=== PATIENT | female | born 1965 | race Caucasian/White ===

== ENCOUNTER 2023-08-18 15:55 | Inpatient (IN) | payer OTHER, SELFPAY ==
[2023-08-18] VITALS (11 sets, daily range): BP systolic 124–190; BP diastolic 51–139; BMI 48.4
[2023-08-18] MEDS: DUONEB 3 ML INH (13:05)
[2023-08-18] MEDS: SOLU-MEDROL PF 125 MG IV (13:06)
--- NOTE | 2023-08-18 13:09 | ED.GENMED ---
History of Present Illness
<Miguel Angel Adam PA-C - Last Filed: 08/18/23 15:31>
General
Chief Complaint: Breathing Problem
Source: patient
Time Seen by Provider: 08/18/23 13:03
Travel History
Have you had any contact with someone who has COVID-19?: No
Do you have any symptoms of coronavirus? Fever > 100 degrees, chills, cough, shortness of breath, sore throat, loss of taste or smell, muscle aches, or headache?: No
History of Present Illness
History of Present Illness:
58-year-old female with past medical history of asthma presenting the emergency department for evaluation of 24 to 36 hours of cough, wheezing, shortness of breath despite using her inhaler and nebulizer machine at home last night, used her inhaler
once this morning. On arrival to the emergency department patient was found to be tachypneic, tachycardic and with accessory muscle use so was started on a DuoNeb. Upon my arrival into the room patient's DuoNeb had just completed and she does
report improvement of the symptoms however still with continued wheezing. Patient denies any fevers, chills, rigors. States her usual trigger for her is mold but she believes that the change in the weather as well as pollen is likely what caused
her symptoms today. She notes that she was admitted to the hospital for asthma exacerbation about 8 years ago but has never been intubated for asthma exacerbation.
Past History
<Miguel Angel Adam PA-C - Last Filed: 08/18/23 15:31>
Past History
ED Past Medical History: Asthma
ED Past Surgical History: , Orthopedic and Tonsilectomy
Social History
Tobacco: Non-smoker
Alcohol: Occasional
Drug: None
Personal: Single
Living: with family
Employment: Employed
Family History
Family History: Asthma
Review of Systems
<Miguel Angel Adam PA-C - Last Filed: 08/18/23 15:31>
Review of Systems
All Other Systems: ROS reviewed and negative except as documented in HPI and ROS
Phy Exam
<Miguel Angel Adam PA-C - Last Filed: 08/18/23 15:31>
Physical Exam
Physical Exam:
GENERAL: Alert , sitting forward in hospital bed, speaking full sentences
EYE: conjunctiva clear
NECK: Supple
ENT: o/p clr, mmm.
CARDIAC: Regular rate and rhythm
LUNGS: Diffuse expiratory wheezing, no accessory muscle use but is tachypneic, oxygen saturation 92% room air, speaking full sentences, no air hunger
NEUROLOGICAL: Alert and oriented
SKIN: Warm and dry, skin intact.
MUSCULOSKELETAL: well perfused.
PSYCH: Normal and appropriate interaction.
Scores
<Miguel Angel Adam PA-C - Last Filed: 08/18/23 15:31>
Heart Failure Risk
Heart Failure Risk Score: Not Applicable
Heart Score for Chest Pain Patients
STEMI patient?: Not applicable
Withdrawal Assessment of Alcohol
Withdrawal Assessment Completed?: Not applicable
Course
<ANAI Lindsay Last Filed: 08/18/23 15:31>
Orders/Labs/Results
Orders:
Orders
08/18/23 13:05
Ipratropium/Albuterol Sulfate [Duoneb] 3 ml INH R NOW ONE
MethylPREDNISolone PF [Solu-Medrol Pf] 125 mg IV NOW STA
08/18/23 13:07
Albuterol Sulfate [Ventolin Nebules] 10 mg INH R NOW STA
08/18/23 13:09
Complete Blood Count/With Diff Urgent
08/18/23 13:14
CR Chest Portable - 1 View Urgent
Comment:
Reason For Exam: SOB
Reason Study Needs to be Portable: Patient Unstable
08/18/23 14:38
Magnesium Sulfate 2 Gram/50 ml [Magnesium Sulfate] 2 gram in 50 ml IV NOW
08/18/23 14:40
Albuterol Sulfate [Ventolin Nebules] 10 mg INH R NOW STA
08/18/23 14:47
BMP [Basic Metabolic Panel] Urgent
08/18/23 15:27
Potassium Chloride [KCl] 20 meq PO NOW STA
Abnormal Lab Results
08/18/23 08/18/23
13:09 14:47
Absolute Neuts (auto) 7.2 H 10^3/uL
(1.4-6.5)
Absolute Lymphs (auto) 1.1 L 10^3/uL
(1.2-3.4)
Absolute Monos (auto) 0.7 H 10^3/uL
(0.1-0.6)
Neutrophils % 78.1 H %
(42.2-75.2)
Lymphocytes % 12.0 L %
(20.5-51.1)
Potassium 3.4 L mmol/L
(3.5-5.1)
Creatinine 0.5 L mg/dL
(0.6-1.0)
Glucose 163 H mg/dl
(70-99)
08/18/23 13:09
08/18/23 14:47
Vital Signs
Initial and Last Documented VS:
Initial Vital Signs
Temp Pulse Resp BP Pulse Ox
98.5 F 141 20 190/115 89
08/18/23 12:40 08/18/23 12:40 08/18/23 12:40 08/18/23 12:40 08/18/23 12:40
Last Documented Vital Signs
Temp Pulse Resp BP Pulse Ox
98.5 F 133 28 155/51 100
08/18/23 12:40 08/18/23 15:13 08/18/23 15:13 08/18/23 15:11 08/18/23 15:11
Lurer consulted with Physician
Lurer consulted with physician?: Yes
Name of Physician Consulted: Facundo
<Gianfranco Loredo MD - Last Filed: 08/18/23 15:06>
Orders/Labs/Results
Orders:
Orders
08/18/23 13:05
Ipratropium/Albuterol Sulfate [Duoneb] 3 ml INH R NOW ONE
MethylPREDNISolone PF [Solu-Medrol Pf] 125 mg IV NOW STA
08/18/23 13:07
Albuterol Sulfate [Ventolin Nebules] 10 mg INH R NOW STA
08/18/23 13:09
Complete Blood Count/With Diff Urgent
08/18/23 13:14
CR Chest Portable - 1 View Urgent
Comment:
Reason For Exam: SOB
Reason Study Needs to be Portable: Patient Unstable
08/18/23 14:38
Magnesium Sulfate 2 Gram/50 ml [Magnesium Sulfate] 2 gram in 50 ml IV NOW
08/18/23 14:40
Albuterol Sulfate [Ventolin Nebules] 10 mg INH R NOW STA
08/18/23 14:47
BMP [Basic Metabolic Panel] Urgent
08/18/23 15:27
Potassium Chloride [KCl] 20 meq PO NOW STA
Abnormal Lab Results
08/18/23 08/18/23
13:09 14:47
Absolute Neuts (auto) 7.2 H 10^3/uL
(1.4-6.5)
Absolute Lymphs (auto) 1.1 L 10^3/uL
(1.2-3.4)
Absolute Monos (auto) 0.7 H 10^3/uL
(0.1-0.6)
Neutrophils % 78.1 H %
(42.2-75.2)
Lymphocytes % 12.0 L %
(20.5-51.1)
Potassium 3.4 L mmol/L
(3.5-5.1)
Creatinine 0.5 L mg/dL
(0.6-1.0)
Glucose 163 H mg/dl
(70-99)
08/18/23 13:09
08/18/23 14:47
Vital Signs
Initial and Last Documented VS:
Initial Vital Signs
Temp Pulse Resp BP Pulse Ox
98.5 F 141 20 190/115 89
08/18/23 12:40 08/18/23 12:40 08/18/23 12:40 08/18/23 12:40 08/18/23 12:40
Last Documented Vital Signs
Temp Pulse Resp BP Pulse Ox
98.5 F 133 28 155/51 100
08/18/23 12:40 08/18/23 15:13 08/18/23 15:13 08/18/23 15:11 08/18/23 15:11
<Miguel Angel Adam PA-C - Last Filed: 08/18/23 15:31>
MDM/Problems Addressed
Differential Diagnosis Includes:
Asthma/COPD exacerbation, pneumonia, PE considered although thought to be much less likely given the visit exam findings of diffuse expiratory wheezing
MDM/Problems Addressed:
58-year-old female presenting emergency department for evaluation of shortness of breath and wheezing ongoing since yesterday, attempted her home nebulizer and inhaler with minimal relief. Found to be hypoxic tachycardic on arrival. Exam findings
would be most suggestive of asthma exacerbation. She had already received a DuoNeb and was completing this upon my arrival into the room and patient had good response with her oxygen coming back up into the low 90s. She still has diffuse
expiratory wheezing. An hour-long albuterol treatment and 125mg of Solu-Medrol ordered. Will continue to observe and reassess.
Chronic conditions affecting care: Asthma
Acute Exacerbation and/or Progression of Chronic Illness: Asthma
<Miguel Angel Adam PA-C - Last Filed: 08/18/23 15:31>
*Radiology
Radiology exam reviewed: preliminary read by ED provider (No consolidations or infiltrates)
*Pulse Oximetry
Patient hypoxic: yes
*Pick And Shovel [employer] Interpretation
Rate: tachycardiac
Rhythm: sinus
*Critical Care Note
Total Time (30-74mins, 75-104mins- exclusive of procedures): Not Applicable
Data Reviewed
Review of Other/Old Records Reveals: Labs and Records
<Miguel Angel Adam PA-C - Last Filed: 08/18/23 15:31>
Patient Management
Discussion with other providers: Hospitalist
Escalation/DeEscalation of care consider admission/obs:
On reevaluation following the first hour-long nebulizer treatment patient's oxygen saturation now back to 89%. We replaced the oxygen with 2 L via nasal cannula. Patient continues with expiratory wheezing and tachypnea. We ordered magnesium
infusion and an additional hour-long neb. Patient accepted to the hospitalist service for continued evaluation and treatment of suspected asthma exacerbation
ED Attending Note
<Miguel Angel Adam PA-C - Last Filed: 08/18/23 15:31>
-
Portions of this chart may have been created with voice recognition software.� Occasional wrong word or��sound alike� substitutions may have occurred due to the inherent limitations of voice recognition software.
<Gianfranco Loredo MD - Last Filed: 08/18/23 15:06>
ED Attending Note
Patient seen and examined by attending physician: Yes
I performed the substantive portion of visit, reviewed & personally made and approve the management plan that is documented in note by myself or MIGUE.: Yes
ED Attending Note:
4095.... Patient was already seen after initial arrival. Presents with cough shortness of breath. History of asthma. Has been hospitalized before. No previous intubations.
On exam patient is nontoxic but mildly tachypneic. Diffuse expiratory wheezing. Mildly tachycardic. Warm and dry perfusing well. Patient was rechecked shortly ago after her 1 hour nebulizer treatment and steroids. Chest x-ray reviewed which is
unremarkable. However she remains with diffuse expiratory wheezing. Repeat hour-long nebs. Will try some magnesium. Clearly warrants admission.
1505.... Patient currently on a hour-long nebulizer. Fully awake and alert. Diffuse wheezing. Pulse ox 97%. Discussed with hospital team
Discharge Plan
Departure
Patient Disposition: Admit
Date of Disposition: 08/18/23
Time of Disposition: 14:41
Presentation/result/management discussed w/ accepting MD/DO: Hospitalist
Discharge Problem:
Asthma, Hypoxia
Prescriptions:
No Action
montelukast 10 MG tablet
10 mg PO QPM
fluticasone propionate 1 SPRAY spray,suspension
2 spray intranasal BID
Rx Instructions:
1 spray into each nostril
budesonide-formoterol [Symbicort] 1 PUFF HFA aerosol inhaler
2 puff inhalation R BID
albuterol sulfate [Ventolin HFA] 90 MCG/PUFF HFA aerosol inhaler
2 puff inhalation Q4HPRN PRN (Reason: sob)
multivitamin Tablet
1 tab PO DAILY
melatonin 5 mg Tablet
5 mg PO HS PRN (Reason: sleep)
albuterol sulfate 2.5 MG/3 ML solution for nebulization
2.5 mg inhalation R QID
famotidine [Pepcid AC] 10 mg Tablet
10 mg PO HS
Referrals:
Rere Tarango MD [Family Provider] -
Interventions
Interventions:
*Risk Screen - Suicide Last Done: 08/18/23 13:28
*General Assessment Last Done: 08/18/23 13:28
*Neglect/Abuse Screening Last Done: 08/18/23 13:28
ED- Fall Risk Assessment Last Done: 08/18/23 13:28
*ED COVID-19 Vaccine History Last Done: 08/18/23 12:40
ED- Cardiac Assessment Last Done: 08/18/23 13:28
ED- Pulmonary Assessment Last Done: 08/18/23 13:28
Discharge Date and Time
Print Language: KENYAN
[2023-08-18] MEDS: VENTOLIN NEBULES 10 MG INH ×2 (13:16→14:49)
[2023-08-18 13:22] LABS: % Basophils 0.7 % (0-2); % Eosinophils 1.7 % (0-6); % Immature Granulocytes 0.2 % (0-0.5); % Monocytes 7.3 % (1.7-9.3); % Neutrophils 78.1 % (42.2-75.2); Absolute Basophils 0.1 10^3/uL (0-0.2); Absolute Eosinophils 0.2 10^3/uL (0-0.7); Absolute Lymphocytes 1.1 10^3/uL (1.2-3.4); Absolute Monocytes 0.7 10^3/uL (0.1-0.6); Absolute Neutrophils 7.2 10^3/uL (1.4-6.5); Hematocrit 41.9 % (37.0-47.0); Hemoglobin 14.5 g/dL (12.0-16.0); Mean Corp Hgb Conc. 34.6 g/dL (33.0-37.0); Mean Corpuscular Volume 86.7 fL (81.0-99.0); Mean Platelet Volume 8.9 fL (7.4-10.4); Nucleated Red Blood Cells % 0 %; Platelet Count 335 10^3/uL (130-400); Red Blood Cell Count 4.83 10^6/uL (4.20-5.40); White Blood Cell Count 9.2 10^3/uL (4.8-10.8)
[2023-08-18] MEDS: MAGNESIUM SULFATE 50 IV (14:41)
--- NOTE | 2023-08-18 14:59 | HPS.HSE ---
Family Physician
-
Family Physician: Rere Tarango
Chief Complaint
-
Cough and Shortness of Breath
History of Present Illness
Patient is a 58 y/o female past medical history of asthma who presents with increased shortness of breath. Patient reports she started with increased shortness of breath and cough yesterday. She notes cough was productive of clear mucus yesterday
but today it was more yellow. She reports using her home nebulizer last night, and inhaler this morning without improvement in her breathing. She reports being hospitalized for her asthma several times, most recently about 5 years ago, but denies
requiring intubation in the past. She has seen pulmonary in the past, but not for the past two years. She denies fevers, sweats or chills.
Medical History
Past Medical History
Past Medical History: Reports Other
Additional Past Medical History:
Asthma
Obstructive Sleep Apnea
Class III Obesity
Past Surgical History: Reports Other
Additional Past Surgical History:
Back Surgery
Left Knee Surgery
Social History
Tobacco: Non-smoker
Alcohol: Occasional
Family History
Family History: Not pertinent
Allergies / Home Medications
Allergies reflects when Allergies were last updated in [facility].
Home Medications with original date entered in [facility]
Allergy/Medication List:
Allergies
Allergy/AdvReac Type Severity Reaction Status Date / Time
ampicillin Allergy Rash Verified 08/18/23 12:42
codeine Allergy Anaphylaxis Verified 08/18/23 12:42
ibuprofen Allergy facial Verified 08/18/23 12:42
droop
Home Medications
albuterol sulfate 90 mcg/actuation aerosol inhaler (Ventolin HFA) 2 puff inhalation Q4HPRN PRN sob 11/15/15
budesonide-formoterol HFA 160 mcg-4.5 mcg/actuation aerosol inhaler (Symbicort) 2 puff inhalation R BID Lung/Breathing Issues 11/15/15
fluticasone propionate 50 mcg/actuation nasal spray,suspension 2 spray intranasal BID Allergies 11/15/15
montelukast 10 mg tablet 10 mg PO QPM Lung/Breathing Issues 11/15/15
albuterol sulfate 2.5 mg/3 mL (0.083 %) solution for nebulization 2.5 mg inhalation R QID Lung/Breathing Issues 08/18/23
famotidine 10 mg tablet (Pepcid AC) 10 mg PO HS GERD 08/18/23
melatonin 5 mg tablet 5 mg PO HS PRN sleep 08/18/23
multivitamin 1 tab PO DAILY Supplement 08/18/23
Review of Systems
-
A 12 point ROS was completed and negative except as noted: Yes
Constitutional: Denies Fever or Chills
Respiratory: Reports Cough and Trouble Breathing
Cardiac: Denies Chest Pain
Physical Exam
Vital Signs
Vital Signs
Temp Pulse Resp BP Pulse Ox
98.5 F 132 28 158/85 93
08/18/23 12:40 08/18/23 14:24 08/18/23 14:24 08/18/23 14:00 08/18/23 14:24
Physical Exam
General: Comfortable and Conversant
HEENT: Anicteric, Moist mucous membranes and Oxygen (Nasal Cannula)
Respiratory: Wheezes (Diffuse Expiratory) and Non Labored Respirations
GI: Soft and Non Tender
Rectal: Deferred by Provider
Musculoskeletal: No Clubbing, No Cyanosis and No Edema
Skin: Warm and Dry
Neuro: Awake, Alert, Oriented and Nonfocal/grossly intact
Psych: Calm
Laboratory Results
-
08/18/23 13:09
Laboratory Results
Total Bilirubin Cancelled 08/18/23 13:23
AST Cancelled 08/18/23 13:23
ALT Cancelled 08/18/23 13:23
Alkaline Phosphatase Cancelled 08/18/23 13:23
Data Reviewed
-
Diagnostic Radiology: Report Reviewed by me
Lab Data: Labs Reviewed by me
Impression/Plan
-
Acute Hypoxic Respiratory Insufficiency secondary to Acute Asthma Exacerbation
-Consult Pulmonary
-Continue supplemental oxygen
-Continue Decadron
-Continue Albuterol
-Transition Symbicort to Pulmicort neb during hospitalization
-Add Mucinex
Obstructive Sleep Apnea
-Continue CPAP
Class III Obesity
-Affects all aspects of care
-Encourage weight loss
GERD
-Continue Pepcid
DVT Proph: Lovenox
Code Status: Full Code
[2023-08-18 15:22] LABS: Blood Urea Nitrogen 12 mg/dl (7-17); Calcium 8.8 mg/dl (8.4-10.2); Carbon Dioxide 22 mmol/L (22-30); Chloride 105 mmol/L (98-107); Glucose 163 mg/dl (70-99); Potassium 3.4 mmol/L (3.5-5.1); Sodium 135 mmol/L (135-145); eGFR > 60.00
[2023-08-18] MEDS: KCL 20 MEQ PO (15:32)
--- NOTE | 2023-08-18 16:10 | W.PN.UPDATE ---
Update Note
Progress Note Update
I saw and examined the patient.
The CLIENT MANAGER [employer] or PA's note was reviewed and I agree with the note.
Comment: 58-year-old female who presents with a chief complaint of shortness of breath.
158/85, 132, 20, 98.5 �F, 93% 3L NC O2
Appears mildly short of breath, normocephalic atraumatic, awake alert and oriented
Tachycardic, regular rhythm, normal S1-S2
Decreased air exchange and wheezing bilaterally
Cranial nerves II to XII are intact
CXR: Elevation of right hemidiaphragm again seen. Markedly low lung volumes with mild right basilar opacity most likely representing subsegmental atelectasis. No pneumothorax or pleural effusion
WBC 9.2
Cr 0.5
Acute hypoxemic respiratory insufficiency due to acute asthma exacerbation:
-Decadron 4mg IV Q8H
-albuterol standing and PRN
-Support with supplemental oxygen
-Pulmonary consult
Morbid obesity due to excess calories:
-Affects all aspects of care. In this instance acute asthma exacerbation the patient's morbid obesity is causing restrictive pulmonary physiology.
-Encourage weight loss
--- NOTE | 2023-08-18 18:30 | CON.PUL ---
Consultation
Consultation Request
Date/Time Consultation Requested: 08/17
Date/Time Consultation Performed: 08/17
Reason for Consultation: Shortness of breath
Medical History
-
History of Present Illness:
58-year-old female with history of asthma, sleep apnea. She was in her usual state of health until 2 days ago developed increased shortness of breath, chest congestion, cough. She states her asthma has been stable for at least 5 years, last course
of steroids around 2019. She is maintained on Symbicort and albuterol which she rarely uses. She thinks it may have to do with allergies. She denies any recent sick contacts, however her mother recently has developed an upper respiratory
infection. Upon arrival to [facility], afebrile, pulse 141, breathing at 20, blood pressure 190/115, 89%. Patient was noted to be diffusely wheezing, given nebulized therapy, IV steroids, IV magnesium. We are asked to help from pulmonary
standpoint
Of note, patient has gained 30 pounds over the past few years. She also has a new CPAP machine over the past 3 years since the recall, she feels that the current machine is not working as effectively
.
PMH: Obstructive sleep apnea, GERD, asthma, morbid obesity, hypertension, hyperlipidemia. History of laminectomy, , tonsillectomy, sinus surgery
Past Medical History
Past Medical History: None (See above)
Past Surgical History: None (See above)
Social History
Tobacco: Non-smoker
Alcohol: None
Drug: None
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
Family History
Family History: Other (Father with emphysema, family history of esophageal and colon cancer. Son is healthy)
Allergies / Home Medications
Allergies
Allergy/AdvReac Type Severity Reaction Status Date / Time
ampicillin Allergy Rash Verified 08/18/23 12:42
codeine Allergy Anaphylaxis Verified 08/18/23 12:42
ibuprofen Allergy facial Verified 08/18/23 12:42
droop
Home Medications
�Medication �Instructions �Recorded �Confirmed �Last Taken �Type
albuterol sulfate 90 mcg/actuation 2 puff inhalation Q4HPRN PRN sob 11/15/15 08/18/23 11/15/15 History
aerosol inhaler (Ventolin HFA)
budesonide-formoterol HFA 160 2 puff inhalation R BID 11/15/15 08/18/23 08/18/23 History
mcg-4.5 mcg/actuation aerosol Lung/Breathing Issues
inhaler (Symbicort)
fluticasone propionate 50 2 spray intranasal BID Allergies 11/15/15 08/18/23 08/18/23 History
mcg/actuation nasal
spray,suspension
montelukast 10 mg tablet 10 mg PO QPM Lung/Breathing Issues 11/15/15 08/18/23 08/17/23 History
albuterol sulfate 2.5 mg/3 mL 2.5 mg inhalation R QID 08/18/23 08/18/23 Unknown History
(0.083 %) solution for nebulization Lung/Breathing Issues
famotidine 10 mg tablet (Pepcid AC) 10 mg PO HS GERD 08/18/23 08/18/23 08/17/23 History
melatonin 5 mg tablet 5 mg PO HS PRN sleep 08/18/23 08/18/23 Unknown History
multivitamin 1 tab PO DAILY Supplement 08/18/23 08/18/23 08/18/23 History
Review of Systems
-
All other systems: Negative unless noted
Vitals / Labs / Diagnostic Testing
Vital Signs
Temp Pulse Resp BP Pulse Ox
98.5 F 133 26 141/82 91
08/18/23 12:40 08/18/23 15:13 08/18/23 17:36 08/18/23 17:00 08/18/23 17:30
Lab Data
08/18/23 13:09
08/18/23 14:47
Diagnostic Testing:
Physical Exam
-
HEENT: Normocephalic, Anicteric and Other (Large neck)
Cardiovascular: S1/S2, Regular Rhythm (Tachycardic), Murmur (n), Rub (n) and Peripheral Edema (tr)
Respiratory: Wheeze (Scattered expiratory and inspiratory squeaks), Rales (n), Rhonchi (n), Non-Labored Respirations and Accessory Resp Muscle Use (Mild with conversation)
GI: Soft, Non Distended (Morbidly obese) and Non Tender
Neurology: Awake, Alert, Oriented and No Motor Deficits
Skin: Good Color and Other (No clubbing, no cyanosis)
General: Comfortable
Assessment
-
58-year-old female with longstanding history of asthma, controlled, sleep apnea on CPAP therapy, morbid obesity with recent 30 pound weight gain, presents with 48 hours of increased symptoms. Noted to be hypoxic, hypertensive, tachycardic with
diffuse wheezing. Received IV steroids, IV magnesium and hour-long nebulizer. We are asked to help from pulmonary standpoint for asthma exacerbation
Acute asthma exacerbation
Tachycardia
Hypertension
Hypoxia, acute
88% on room air
Conditions present prior to admission
History of asthma on Symbicort therapy
Chronic rhinitis
GERD, hiatal hernia
History of sinus surgery
Sleep apnea on CPAP therapy
Family history of emphysema (father)
Morbid obesity
30 pound weight gain
History of COVID 2021
Plan/recommendations
At this time, patient appears to be comfortable mild use of accessory muscles with conversation
Diffuse wheezing and inspiratory squeaks noted, decreased breath sounds
Admitting vitals concerning with hypertension, tachycardia, tachypnea, hypoxia
These all seem to be improved at this time
Patient apparently is compliant with Symbicort therapy. Trigger may be weather changes, allergies
Moving forward
Continue with IV steroids, budesonide, albuterol, Singulair
Patient has not followed up with pulmonary since 2019
She states her asthma has been controlled since 2018
She feels her cough has been present since 2021 following COVID
Discussed importance of weight loss measures
Head of bed elevated, GERD controlled
She will require follow-up in the pulmonary clinic especially given her issues with CPAP
This will be facilitated at time of discharge
Follow blood sugars
DVT prophylaxis: Lovenox
GI prophylaxis: Continue Pepcid
Will follow
[2023-08-18] MEDS: LOVENOX 40 MG SC (19:18)
[2023-08-18] MEDS: VENTOLIN NEBULES 2.5 MG INH (20:24)
[2023-08-18] MEDS: PULMICORT 0.5 MG INH (20:24)
[2023-08-18] MEDS: MUCINEX 600 MG PO (20:53)
[2023-08-18] MEDS: TYLENOL 650 MG PO (20:53)
[2023-08-18] MEDS: SINGULAIR 10 MG PO (20:54)
[2023-08-18] MEDS: PEPCID 10 MG PO (20:57)
[2023-08-19] VITALS (8 sets, daily range): BP systolic 128–150; BP diastolic 67–90; PULSE 74–94
[2023-08-19] MEDS: MELATONIN 5 MG PO ×2 (00:07→22:28)
[2023-08-19] MEDS: DECADRON 4 MG IV ×4 (00:08→23:00)
[2023-08-19] MEDS: VENTOLIN NEBULES 2.5 MG INH ×5 (00:10→19:54)
[2023-08-19] MEDS: TYLENOL 650 MG PO ×2 (02:36→08:58)
[2023-08-19 05:41] LABS: Hemoglobin 13.2 g/dL (12.0-16.0); Mean Corpuscular Hgb 29.5 pg (27.0-31.0); Mean Corpuscular Volume 89.5 fL (81.0-99.0); Platelet Count 249 10^3/uL (130-400); Red Blood Cell Count 4.47 10^6/uL (4.20-5.40); Red Cell Dist. Width 13.2 % (11.5-14.5); White Blood Cell Count 11.2 10^3/uL (4.8-10.8)
[2023-08-19 06:12] LABS: Blood Urea Nitrogen 12 mg/dl (7-17); Calcium 9.2 mg/dl (8.4-10.2); Carbon Dioxide 25 mmol/L (22-30); Chloride 105 mmol/L (98-107); Estimated Creatinine Clearance > 125 ml/min; Glucose 130 mg/dl (70-99); Magnesium 2.4 mg/dl (1.6-2.3); Sodium 137 mmol/L (135-145); eGFR > 60.00
[2023-08-19] MEDS: PULMICORT 0.5 MG INH ×2 (07:11→19:54)
[2023-08-19] MEDS: THERAGRAN 1 TABLET PO (08:58)
[2023-08-19] MEDS: MUCINEX 600 MG PO ×2 (08:58→20:33)
--- NOTE | 2023-08-19 09:04 | W.PN.HOSP.TC ---
Today's Communication/Plan
-
see bold
Assessment / Plan
Assessment / Plan
Gen: NAD, AAOx3.
Eyes: EOMI, PERRLA, no scleral icterus.
Neck: supple.
CV: tachy, reg rhythm, +S1/S2, no m/r/g.
Resp: mild-mod wheezing, dec AE
Abd: +BS, soft, NT, ND
Skin: No rashes.
Neuro: CN 2-12 intact, non-focal.
Psych: Normal mood and affect.
CXR: Elevation of right hemidiaphragm again seen. Markedly low lung volumes with mild right basilar opacity most likely representing subsegmental atelectasis. No pneumothorax or pleural effusion
Acute hypoxemic respiratory insufficiency due to acute asthma exacerbation:
-Decadron 4mg IV Q8H
-cont pulmicort, albuterol standing and PRN, singulair
-Support with supplemental oxygen (currently on 4L NC O2)
-Pulmonary following
Morbid obesity due to excess calories:
-Affects all aspects of care. In this instance acute asthma exacerbation the patient's morbid obesity is causing restrictive pulmonary physiology.
-Encourage weight loss
WENDI: Cont CPAP HS
GERD: currently on Pepcid
FULL/Lovenox
Anticipated Discharge: 24 - 48 hours
Subjective/Interval History
-
Date of Service: August 19, 2023
SOB improving.
Objective Data
-
Labs:
Laboratory Results
08/19/23
05:30
WBC 11.2 H
Hgb 13.2
Hct 40.0
Plt Count 249 D
Sodium 137
Potassium 5.0 D
Chloride 105
Carbon Dioxide 25
BUN 12
Creatinine 0.5 L
Glucose 130 H
Calcium 9.2
Vital Signs:
Vital Signs
Temp Pulse Resp BP Pulse Ox
97.4 F 92 18 128/72 96
08/19/23 07:00 08/19/23 07:15 08/19/23 07:15 08/19/23 07:00 08/19/23 07:15
I&O
08/18/23 08/19/23 08/20/23
06:59 06:59 06:59
Intake Total 600 / 600
Balance 600 / 600
[2023-08-19] MEDS: ZOFRAN 4 MG IV (09:31)
--- NOTE | 2023-08-19 14:16 | CM ---
Met with pt at bedside
Pt lives with her mother and son in a modular home at listed address
Working FT, drives
DM - CPAP, nebulizer
SNF/HH - no hx
Has ride at d/c
PCP - Dr India Tarango
Pharm - [facility]
CM consulted - re: Advance Directive
Pt given Advance Directive Packet
CM will continue to follow for d/c needs
Plan - anticipate home no needs
--- NOTE | 2023-08-19 15:51 | W.PN.PUL3 ---
Today's Communication / Plan
-
No change in steroids
continue nocturnal CPAP
Continue nebulized therapy
Wean oxygen
Assessment
-
58-year-old female with longstanding history of asthma, controlled, sleep apnea on CPAP therapy, morbid obesity with recent 30 pound weight gain, presents with 48 hours of increased symptoms. Noted to be hypoxic, hypertensive, tachycardic with
diffuse wheezing. Received IV steroids, IV magnesium and hour-long nebulizer. We are asked to help from pulmonary standpoint for asthma exacerbation
Acute asthma exacerbation
Tachycardia
Hypertension
Hypoxia, acute
88% on room air
Conditions present prior to admission
History of asthma on Symbicort therapy
Chronic rhinitis
GERD, hiatal hernia
History of sinus surgery
Sleep apnea on CPAP therapy
Family history of emphysema (father)
Morbid obesity
30 pound weight gain
History of COVID 2021
Plan/recommendations
At this time, patient appears to be comfortable, less use of accessory muscles with conversation
Diffuse wheezing and inspiratory squeaks noted, decreased breath sounds, overall improved
Admitting vitals concerning with hypertension, tachycardia, tachypnea, hypoxia
These all seem to be improved at this time
Patient apparently is compliant with Symbicort therapy. Trigger may be weather changes, allergies
Moving forward
Continue with IV steroids, budesonide, albuterol, Singulair. No change in steroids for now
Patient has not followed up with pulmonary since 2019
She states her asthma has been controlled since 2018
She feels her cough has been present since 2021 following COVID
Discussed importance of weight loss measures
Head of bed elevated, GERD controlled
She will require follow-up in the pulmonary clinic especially given her issues with CPAP
She continues with her CPAP overnight
This will be facilitated at time of discharge
Follow blood sugars
DVT prophylaxis: Lovenox
GI prophylaxis: Continue Pepcid
Subjective Data
-
Date of Service:
Date of Service: August 19, 2023
Subjective:
Patient does feel slightly improved although more productive cough noted, green mucus, no blood. Nebulizer makes it more difficult for her to cough. She did walk to the bathroom, denies lightheadedness, dizziness, nausea. Appetite is poor
Objective Data
Data Reviewed
Vital Signs / I&O / Oxygen:
Vital Signs
Temp Pulse Resp BP Pulse Ox
97.5 F 85 18 144/90 96
08/19/23 11:00 08/19/23 15:13 08/19/23 15:13 08/19/23 11:00 08/19/23 15:13
Intake and Output
08/18/23 08/19/23 08/20/23
06:59 06:59 06:59
Intake Total 600 / 600
Balance 600 / 600
SaO2 96
Nasal Cannula flow liters per 3
minute
Physical Exam
General: Comfortable
HEENT: Normocephalic, Anicteric and Other (Large neck)
Cardiovascular: S1-S2, Regular Rhythm, Murmur (n) and Rub (n)
Respiratory: Wheeze (Scattered expiratory), Crackles (n), Rhonchi (n), Non-Labored Respirations, Stridor (n) and Other (Inspiratory squeaks)
GI: Soft, Non Distended (Obese) and Non Tender
Neurology: Awake, Alert and No Motor Deficits
Skin: Cyanosis (n), Jaundice (n) and Rash (n)
Labs/Micro/Reports
Lab Data
08/19/23 05:30
08/19/23 05:30
[2023-08-19] MEDS: ZADITOR 1 DROP BOTH EYES (18:17)
[2023-08-19] MEDS: SINGULAIR 10 MG PO (18:17)
[2023-08-19] MEDS: LOVENOX 40 MG SC (18:17)
[2023-08-19] MEDS: PEPCID 10 MG PO (20:33)
[2023-08-19] MEDS: FLUSH (NSS) 2 FLUSH IV (23:00)
[2023-08-20 07:00] VITALS: BP 135/76
--- NOTE | 2023-08-20 07:49 | W.PN.HOSP.TC ---
Addendum entered and electronically signed by Farhad Palacios MD 08/20/23 11:24:
Patient desaturates to 89% and becomes tachycardic with ambulation. Will continue IV Decadron today. Hopefully patient can be discharged in 1 to 2 days. No tachycardia may simply be due to deconditioning.
Original Note:
Today's Communication/Plan
-
If pt can be weaned to RA she can be discharged.
Assessment / Plan
Assessment / Plan
Gen: NAD, AAOx3.
Eyes: EOMI, PERRLA, no scleral icterus.
Neck: supple.
CV: RRR, +S1/S2, no m/r/g.
Resp: CTAB
Skin: No rashes.
Neuro: CN 2-12 intact, non-focal.
Psych: Normal mood and affect.
CXR: Elevation of right hemidiaphragm again seen. Markedly low lung volumes with mild right basilar opacity most likely representing subsegmental atelectasis. No pneumothorax or pleural effusion
Acute hypoxemic respiratory insufficiency due to acute asthma exacerbation:
-Decadron 4mg IV Q8H
-cont pulmicort, albuterol standing and PRN, singulair
-Support with supplemental oxygen (currently on 2L NC O2)
-Pulmonary following
Morbid obesity due to excess calories:
-Affects all aspects of care. In this instance acute asthma exacerbation the patient's morbid obesity is causing restrictive pulmonary physiology.
-Encourage weight loss
WENDI: Cont CPAP HS
GERD: currently on Pepcid
FULL/Lovenox
Anticipated Discharge: Within 24 hours
Subjective/Interval History
-
Date of Service: August 20, 2023
Denies SOB. Asking to go home.
Objective Data
-
Vital Signs:
Vital Signs
Temp Pulse Resp BP Pulse Ox
98.1 F 84 16 136/67 94
08/19/23 22:42 08/19/23 22:42 08/19/23 22:42 08/19/23 22:42 08/19/23 23:00
I&O
08/19/23 08/20/23 08/21/23
06:59 06:59 06:59
Intake Total 600 / 600 900 / 900 240 / 240
Balance 600 / 600 900 / 900 240 / 240
[2023-08-20] MEDS: PULMICORT 0.5 MG INH ×2 (08:11→19:37)
[2023-08-20] MEDS: VENTOLIN NEBULES 2.5 MG INH ×4 (08:11→19:37)
[2023-08-20] MEDS: THERAGRAN 1 TABLET PO (09:33)
[2023-08-20] MEDS: MUCINEX 600 MG PO ×2 (09:33→21:08)
[2023-08-20] MEDS: ZADITOR 1 DROP BOTH EYES ×2 (09:33→22:59)
--- NOTE | 2023-08-20 10:14 | W.PN.PUL3 ---
Today's Communication / Plan
-
Transition to oral prednisone 5/4
Continue Pulmicort and albuterol via nebulizer
Case management to confirm patient has nebulizer at home
Check ambulatory saturation
Continue CPAP
Pulmonary follow-up as outpatient
Assessment
-
58-year-old female with longstanding history of asthma, controlled, sleep apnea on CPAP therapy, morbid obesity with recent 30 pound weight gain, presents with 48 hours of increased symptoms. Noted to be hypoxic, hypertensive, tachycardic with
diffuse wheezing. Received IV steroids, IV magnesium and hour-long nebulizer. We are asked to help from pulmonary standpoint for asthma exacerbation
Acute asthma exacerbation
Tachycardia
Hypertension
Hypoxia, acute
88% on room air
Conditions present prior to admission
History of asthma on Symbicort therapy
Chronic rhinitis
GERD, hiatal hernia
History of sinus surgery
Sleep apnea on CPAP therapy
Family history of emphysema (father)
Morbid obesity
30 pound weight gain
History of COVID 2021
Plan/recommendations
At this time, patient appears to be comfortable, less use of accessory muscles with conversation, chest exam improved
Minimal wheezing and inspiratory squeaks noted, decreased breath sounds, overall improved
Admitting vitals concerning with hypertension, tachycardia, tachypnea, hypoxia
These all seem to be improved at this time
Patient apparently is compliant with Symbicort therapy. Trigger may be weather changes, allergies
Moving forward
Continue with IV steroids, budesonide, albuterol, Singulair.
Will decrease to oral prednisone 5/4 with slow taper
Patient has not followed up with pulmonary since 2019
She states her asthma has been controlled since 2018
She feels her cough has been present since 2021 following COVID
Discussed importance of weight loss measures
Head of bed elevated, GERD controlled
Check ambulatory saturation, wean off oxygen
She will require follow-up in the pulmonary clinic especially given her issues with CPAP
She continues with her CPAP overnight
This will be facilitated at time of discharge
Follow blood sugars
DVT prophylaxis: Lovenox
GI prophylaxis: Continue Pepcid
Hope for discharge in the next 24 to 48 hours
Subjective Data
-
Date of Service:
Date of Service: August 20, 2023
Subjective:
Patient continues to improve. Still has productive cough, less so. Denies hemoptysis, chest pain, nausea. Slept well on BiPAP.
Objective Data
Data Reviewed
Vital Signs / I&O / Oxygen:
Vital Signs
Temp Pulse Resp BP Pulse Ox
97.7 F 63 18 135/76 97
08/20/23 07:00 08/20/23 07:00 08/20/23 07:00 08/20/23 07:00 08/20/23 07:00
Intake and Output
08/19/23 08/20/23 08/21/23
06:59 06:59 06:59
Intake Total 600 / 600 900 / 900 240 / 240
Balance 600 / 600 900 / 900 240 / 240
SaO2 97
Nasal Cannula flow liters per 2
minute
Physical Exam
General: Comfortable
HEENT: Normocephalic, Anicteric and Other (Large neck)
Cardiovascular: S1-S2, Regular Rhythm, Murmur (n) and Rub (n)
Respiratory: Wheeze (Scattered expiratory), Crackles (n), Rhonchi (n), Non-Labored Respirations, Stridor (n) and Other (Inspiratory squeaks)
GI: Soft, Non Distended (Obese) and Non Tender
Neurology: Awake, Alert and No Motor Deficits
Skin: Cyanosis (n), Jaundice (n) and Rash (n)
Labs/Micro/Reports
Lab Data
08/19/23 05:30
08/19/23 05:30
[2023-08-20] MEDS: DECADRON 4 MG IV ×2 (10:47→21:13)
--- NOTE | 2023-08-20 11:39 | PTCARENOTE ---
Pulse ox assessment: 94% RA prior to activity. After ambulating 89% RA HR 130s. Pt winded and recovering on side of bed. Dr Suzanne mata.
[2023-08-20 15:00] VITALS: BP 121/77
[2023-08-20] MEDS: LOVENOX 40 MG SC (18:35)
[2023-08-20] MEDS: SINGULAIR 10 MG PO (18:35)
--- NOTE | 2023-08-20 18:47 | PTCARENOTE ---
Pulse ox 89% RA resting in bed. Pt placed back on 2L NC.
[2023-08-20] MEDS: PEPCID 10 MG PO (21:08)
[2023-08-20] MEDS: MELATONIN 5 MG PO (21:12)
[2023-08-20] MEDS: FLUSH (NSS) 2 FLUSH IV (21:13)
[2023-08-20] MEDS: TYLENOL 650 MG PO (22:57)
[2023-08-20 23:17] VITALS: PULSE 77
[2023-08-20 23:40] VITALS: BP 129/79
[2023-08-21 07:00] VITALS: BP 127/75
[2023-08-21] MEDS: VENTOLIN NEBULES 2.5 MG INH ×4 (07:25→18:27)
[2023-08-21] MEDS: PULMICORT 0.5 MG INH ×2 (07:25→18:27)
[2023-08-21] MEDS: THERAGRAN 1 TABLET PO (08:08)
[2023-08-21] MEDS: DELTASONE 40 MG PO (08:08)
[2023-08-21] MEDS: MUCINEX 600 MG PO ×2 (08:08→21:48)
[2023-08-21] MEDS: ZADITOR 1 DROP BOTH EYES ×2 (08:09→21:50)
--- NOTE | 2023-08-21 08:50 | CM ---
Reviewed chart, reviewed PT/OT. Patient has been functioning and prior level/baseline. Will return home when stable.
Plan: Case management will continue to follow and assist with discharge planning. Home when stable.
[2023-08-21 15:00] VITALS: BP 145/82
--- NOTE | 2023-08-21 15:28 | W.PN.HOSP.TC ---
Today's Communication/Plan
-
Decadron
Add Acapella
Wean O2
Add Zithromax as she has productive cough
Assessment / Plan
Assessment / Plan
CVS: S1-S2 normal
Chest: B/L Insp and Exp wheezes
Abdomen: Soft, NT / Bowel sounds present
Extremities: No edema, normal pulses
FACETOR: Non focal exam
CXR: Elevation of right hemidiaphragm again seen. Markedly low lung volumes with mild right basilar opacity most likely representing subsegmental atelectasis. No pneumothorax or pleural effusion
#Acute hypoxemic respiratory insufficiency due to acute asthma exacerbation:
-Decadron 4mg IV Q8H, changed to prednisone, change back to IV as she feels worse
-Cont Pulmicort, albuterol standing and PRN, Singulair
-Pulmonary following
#Morbid obesity due to excess calories:
-Affects all aspects of care. In this instance acute asthma exacerbation the patient's morbid obesity is causing restrictive pulmonary physiology.
-Encourage weight loss
#WENDI: Cont CPAP HS
#GERD: currently on Pepcid
#Insomnia-on melatonin
#Migraines
#FULL CODE
#DVT Prophylaxis- Lovenox
Anticipated Discharge: 24 - 48 hours
Subjective/Interval History
-
Date of Service: August 21, 2023
Objective Data
-
Vital Signs:
Vital Signs
Temp Pulse Resp BP Pulse Ox
97.4 F 79 18 127/75 97
08/21/23 07:00 08/21/23 15:10 08/21/23 15:10 08/21/23 07:00 08/21/23 15:10
I&O
08/20/23 08/21/23 08/22/23
06:59 06:59 06:59
Intake Total 900 / 900 1440 / 1440
Balance 900 / 900 1440 / 1440
[2023-08-21] MEDS: ZITHROMAX 500 MG PO (17:49)
[2023-08-21] MEDS: SINGULAIR 10 MG PO (17:50)
[2023-08-21] MEDS: LOVENOX 40 MG SC (17:50)
--- NOTE | 2023-08-21 18:20 | W.PN.PUL3 ---
Today's Communication / Plan
-
Continue IV corticosteroid
Continue Pulmicort while in the hospital
Restart Symbicort upon discharge
Continue Singulair
Azithromycin total of 5 days
Wean off oxygen
Assessment
-
58-year-old female with longstanding history of asthma, controlled, sleep apnea on CPAP therapy, morbid obesity with recent 30 pound weight gain, presents with 48 hours of increased symptoms. Noted to be hypoxic, hypertensive, tachycardic with
diffuse wheezing. Received IV steroids, IV magnesium and hour-long nebulizer. We are asked to help from pulmonary standpoint for asthma exacerbation
Acute asthma exacerbation
Tachycardia
Hypertension
Hypoxia, acute
88% on room air
Conditions present prior to admission
History of asthma on Symbicort therapy
Chronic rhinitis
GERD, hiatal hernia
History of sinus surgery
Sleep apnea on CPAP therapy
Family history of emphysema (father)
Morbid obesity
30 pound weight gain
History of COVID 2021
Plan/recommendations
Still bronchospastic.
Still on low rate supplemental oxygen
Feels improved but not completely back to baseline
-
Patient apparently is compliant with Symbicort therapy. Trigger may be weather changes, allergies
Plan:
Continue IV corticosteroids without change.
Continue Pulmicort nebulizer while in the hospital
Continue singular
Symbicort upon discharge
Azithromycin started per primary team due to productive cough. Will treat for only 5 days.
-
Patient has not followed up with pulmonary since 2019
She states her asthma has been controlled since 2018
She feels her cough has been present since 2021 following COVID
Discussed importance of weight loss measures
Head of bed elevated, GERD controlled
Wean off oxygen as able.
She will require follow-up in the pulmonary clinic especially given her issues with CPAP
She continues with her CPAP overnight
This will be facilitated at time of discharge
Follow blood sugars, particularly on steroids per
DVT prophylaxis: Lovenox
GI prophylaxis: Continue Pepcid
Not ready for discharge per
Subjective Data
-
Date of Service:
Date of Service: August 21, 2023
Chief Complaint: Pulmonary Follow Up (Acute asthma exacerbation)
Subjective:
Complaining of a productive cough
Wheezing improving
Still coughing.
Review of Systems
General: Fever (n)
Cardiopulmonary: Dyspnea (Improved)
GI: Abdominal Pain (n)
Neuro: Headache (n)
Objective Data
Data Reviewed
Vital Signs / I&O / Oxygen:
Vital Signs
Temp Pulse Resp BP Pulse Ox
97.7 F 79 18 145/82 97
08/21/23 15:00 08/21/23 15:10 08/21/23 15:10 08/21/23 15:00 08/21/23 15:10
Intake and Output
08/20/23 08/21/23 08/22/23
06:59 06:59 06:59
Intake Total 900 / 900 1440 / 1440 1140 / 1140
Balance 900 / 900 1440 / 1440 1140 / 1140
SaO2 97
Nasal Cannula flow liters per 2
minute
Physical Exam
General: Comfortable
HEENT: Normocephalic, Anicteric and Other (Large neck)
Cardiovascular: S1-S2, Regular Rhythm, Murmur (n) and Rub (n)
Respiratory: Wheeze (Scattered expiratory), Crackles (n), Rhonchi (n), Non-Labored Respirations, Stridor (n) and Other (Inspiratory squeaks)
GI: Soft, Non Distended (Obese) and Non Tender
Neurology: Awake, Alert and No Motor Deficits
Skin: Cyanosis (n), Jaundice (n) and Rash (n)
Labs/Micro/Reports
Lab Data
08/19/23 05:30
08/19/23 05:30
Microbiology
08/19/23 07:55 Nose MRSA Screen - Final
No Methicillin Resistant Staphylococcus aureus isolated.
[2023-08-21] MEDS: DECADRON 4 MG IV (21:46)
[2023-08-21] MEDS: FLUSH (NSS) 2 FLUSH IV (21:47)
[2023-08-21] MEDS: PEPCID 10 MG PO (21:48)
[2023-08-21] MEDS: MELATONIN 5 MG PO (21:48)
[2023-08-21 23:00] VITALS: BP 141/87
[2023-08-22 01:02] VITALS: PULSE 88
[2023-08-22 07:00] VITALS: BP 122/65
[2023-08-22] MEDS: PULMICORT 0.5 MG INH ×2 (07:32→20:12)
[2023-08-22] MEDS: VENTOLIN NEBULES 2.5 MG INH ×4 (07:32→20:11)
[2023-08-22] MEDS: MUCINEX 600 MG PO ×2 (08:00→22:43)
[2023-08-22] MEDS: THERAGRAN 1 TABLET PO (08:00)
[2023-08-22] MEDS: DECADRON 4 MG IV (08:01)
[2023-08-22] MEDS: TYLENOL 650 MG PO (08:05)
[2023-08-22] MEDS: ZITHROMAX 500 MG PO (08:08)
[2023-08-22] MEDS: FLUSH (NSS) 2 FLUSH IV (08:09)
[2023-08-22 08:12] LABS: Blood Urea Nitrogen 18 mg/dl (7-17); Carbon Dioxide 30 mmol/L (22-30); Chloride 100 mmol/L (98-107); Estimated Creatinine Clearance > 125 ml/min; Glucose 105 mg/dl (70-99); Potassium 4.6 mmol/L (3.5-5.1); Sodium 133 mmol/L (135-145); eGFR > 60.00
[2023-08-22] MEDS: ZADITOR 1 DROP BOTH EYES ×2 (11:14→22:43)
--- NOTE | 2023-08-22 13:07 | W.PN.HOSP.TC ---
Today's Communication/Plan
-
Steroids
Nebs
Zithromax
Pt aware she may still have wheezes at discharge
She is Off O2 now
Assessment / Plan
Assessment / Plan
CVS: S1-S2 normal
Chest: B/L Insp and Exp wheezes
Abdomen: Soft, NT / Bowel sounds present
Extremities: No edema, normal pulses
CXR: Elevation of right hemidiaphragm again seen. Markedly low lung volumes with mild right basilar opacity most likely representing subsegmental atelectasis. No pneumothorax or pleural effusion
#Acute hypoxemic respiratory insufficiency due to acute asthma exacerbation:
-Off O2 now
-Decadron 4mg IV Q12H
-Zithromax, Nebs
-Cont Pulmicort, albuterol standing and PRN, Singulair
-Pulmonary following
#Morbid obesity due to excess calories:
-Affects all aspects of care. In this instance acute asthma exacerbation the patient's morbid obesity is causing restrictive pulmonary physiology.
-Encourage weight loss
#WENDI: Cont CPAP HS
#GERD: currently on Pepcid
#Insomnia-on melatonin
#Migraines
#FULL CODE
#DVT Prophylaxis- Lovenox
Anticipated Discharge: Within 24 hours
Subjective/Interval History
-
Date of Service: August 22, 2023
Objective Data
-
Labs:
Laboratory Results
08/22/23
06:23
Sodium 133 L
Potassium 4.6
Chloride 100
Carbon Dioxide 30
BUN 18 H
Creatinine 0.6
Glucose 105 H
Calcium 9.0
Vital Signs:
Vital Signs
Temp Pulse Resp BP Pulse Ox
97.8 F 89 20 122/65 93
08/22/23 07:00 08/22/23 11:11 08/22/23 11:11 08/22/23 07:00 08/22/23 12:15
I&O
08/21/23 08/22/23 08/23/23
06:59 06:59 06:59
Intake Total 1440 / 1440 1140 / 1140 400 / 400
Output Total 0 / 0
Balance 1440 / 1440 1140 / 1140 400 / 400
[2023-08-22 15:00] VITALS: BP 152/84
[2023-08-22] MEDS: SINGULAIR 10 MG PO (16:54)
[2023-08-22] MEDS: LOVENOX 40 MG SC (16:54)
--- NOTE | 2023-08-22 18:17 | W.PN.PUL3 ---
Today's Communication / Plan
-
Decrease steroids
Continue nebulizer therapy
Azithromycin
Oxygen has been weaned off
Agree with transition to prednisone in 24 hours and discharge planning if better.
Assessment
-
58-year-old female with longstanding history of asthma, controlled, sleep apnea on CPAP therapy, morbid obesity with recent 30 pound weight gain, presents with 48 hours of increased symptoms. Noted to be hypoxic, hypertensive, tachycardic with
diffuse wheezing. Received IV steroids, IV magnesium and hour-long nebulizer. We are asked to help from pulmonary standpoint for asthma exacerbation
Acute asthma exacerbation
Tachycardia
Hypertension
Hypoxia, acute
88% on room air
Conditions present prior to admission
History of asthma on Symbicort therapy
Chronic rhinitis
GERD, hiatal hernia
History of sinus surgery
Sleep apnea on CPAP therapy
Family history of emphysema (father)
Morbid obesity
30 pound weight gain
History of COVID 2021
Plan/recommendations
Improving clinically, better air movement. Scattered expiratory wheezing.
Oxygen has been weaned off.
Feels improved but not completely back to baseline, intermittent coughing.
-
Patient apparently is compliant with Symbicort therapy. Trigger may be weather changes, allergies
Plan:
Decrease steroids today, transition to prednisone 40 mg tomorrow.
Continue Pulmicort nebulizer while in the hospital
Continue singular
Symbicort upon discharge
Azithromycin started per primary team due to productive cough. Will treat for only 5 days.
-
Patient has not followed up with pulmonary since 2019
She states her asthma has been controlled since 2018
She feels her cough has been present since 2021 following COVID
Discussed importance of weight loss measures
Head of bed elevated, GERD controlled
Wean off oxygen as able.
She will require follow-up in the pulmonary clinic especially given her issues with CPAP
She continues with her CPAP overnight
This will be facilitated at time of discharge
Follow blood sugars, particularly on steroids per
Weight loss also recommended as part of the asthma therapy.
DVT prophylaxis: Lovenox
GI prophylaxis: Continue Pepcid
Hopefully discharge in 24 hours.
Subjective Data
-
Date of Service:
Date of Service: August 22, 2023
Chief Complaint: Pulmonary Follow Up (Acute asthma exacerbation)
Subjective:
On and off with coughing.
Intermittently congested
No significant phlegm production or hemoptysis
Oxygen has been weaned off.
Review of Systems
General: Fever (n)
Cardiopulmonary: Dyspnea, Dyspnea on Exertion and Cough
Objective Data
Data Reviewed
Vital Signs / I&O / Oxygen:
Vital Signs
Temp Pulse Resp BP Pulse Ox
98.5 F 63 18 152/84 96
08/22/23 15:00 08/22/23 15:24 08/22/23 15:24 08/22/23 15:00 08/22/23 15:24
Intake and Output
08/21/23 08/22/23 08/23/23
06:59 06:59 06:59
Intake Total 1440 / 1440 1140 / 1140 1870 / 1870
Output Total 0 / 0
Balance 1440 / 1440 1140 / 1140 1870 / 1870
SaO2 96
Nasal Cannula flow liters per 2
minute
Physical Exam
General: Comfortable
HEENT: Normocephalic, Anicteric and Other (Large neck)
Cardiovascular: S1-S2, Regular Rhythm, Murmur (n) and Rub (n)
Respiratory: Wheeze (Scattered expiratory), Crackles (n), Rhonchi (n), Non-Labored Respirations, Stridor (n) and Other (Inspiratory squeaks)
GI: Soft, Non Distended (Obese) and Non Tender
Neurology: Awake, Alert and No Motor Deficits
Skin: Cyanosis (n), Jaundice (n) and Rash (n)
Labs/Micro/Reports
Lab Data
08/19/23 05:30
08/22/23 06:23
Microbiology
08/19/23 07:55 Nose MRSA Screen - Final
No Methicillin Resistant Staphylococcus aureus isolated.
[2023-08-22] MEDS: PEPCID 10 MG PO (22:41)
[2023-08-22] MEDS: DECADRON 2 MG IV (22:42)
[2023-08-22] MEDS: MELATONIN 5 MG PO (22:42)
[2023-08-22 23:59] VITALS: BP 128/68
[2023-08-23] MEDS: PULMICORT 0.5 MG INH ×2 (07:48→19:58)
[2023-08-23] MEDS: VENTOLIN NEBULES 2.5 MG INH ×4 (07:48→19:58)
[2023-08-23] MEDS: MUCINEX 600 MG PO ×2 (08:01→20:58)
[2023-08-23] MEDS: ZITHROMAX 500 MG PO (08:01)
[2023-08-23] MEDS: THERAGRAN 1 TABLET PO (08:01)
[2023-08-23] MEDS: DECADRON 2 MG IV (08:01)
[2023-08-23] MEDS: ZADITOR 1 DROP BOTH EYES ×2 (08:04→21:00)
[2023-08-23 08:12] VITALS: BP 137/86
[2023-08-23 10:02] VITALS: O2SAT 93; O2SAT 95
--- NOTE | 2023-08-23 10:36 | W.PN.PUL3 ---
Today's Communication / Plan
-
Wean steroids to [facility] starting tomorrow - prednisone 40mg and reduce by 10mg every 4th day until off
Step up therapy to triple inhaler with Trelegy 200mcg upon discharge
Continue nebulizer therapy while she remains inpatient
Azithromycin x 5 days
Oxygen has been weaned off - assuming resting SpO2 is >95% on room air then no need to check walking pulse oximetry prior to discharge
We will arrange for outpatient office follow-up
Assessment
-
58-year-old female with longstanding history of asthma, controlled, sleep apnea on CPAP therapy, morbid obesity with recent 30 pound weight gain, presents with 48 hours of increased symptoms. Noted to be hypoxic, hypertensive, tachycardic with
diffuse wheezing. Received IV steroids, IV magnesium and hour-long nebulizer. We are asked to help from pulmonary standpoint for asthma exacerbation
Acute asthma exacerbation (eosinophils: 200 on admission)
Tachycardia � resolved
Hypertension
Hypoxia, acute � resolved
Conditions present prior to admission
History of asthma on Symbicort therapy
Chronic rhinitis
GERD, hiatal hernia
History of sinus surgery
Sleep apnea on CPAP therapy
Family history of emphysema (father)
Morbid obesity
30 pound weight gain
History of COVID 2021
Plan/recommendations
Improving clinically, better air movement. Resolved wheezing as of 08/22.
Oxygen has been weaned off.
Feels improved but not completely back to baseline, intermittent coughing.
-
Patient apparently is compliant with Symbicort therapy. Trigger may be weather changes vs allergies
Plan:
Decrease steroids today, transition to prednisone 40 mg tomorrow --> would wean by 10mg every 4th day until off
Continue Pulmicort nebulizer while in the hospital
Continue singular
Considering patient is now experiencing and exacerbation, would step up therapy to triple inhaler with Trelegy 200mcg upon discharge
Azithromycin started per primary team due to productive cough. Will treat for only 5 days.
-
Patient has not followed up with pulmonary since 11/2019
She states her asthma has been controlled since 2018
She feels her cough has been present since 2021 following COVID
Discussed importance of weight loss measures
Head of bed elevated, GERD controlled
Maintain SpO2 >90-94%
As long as resting SpO2 is >95% on room air, then no need to check walking pulse ox prior to discharge.
She will require follow-up in the pulmonary clinic especially given her issues with CPAP
She continues with her CPAP overnight, but has been experiencing 'terrible AM headaches.' We will need to discuss this and obtain a CPAP download
This will be facilitated at time of discharge
Follow blood sugars, particularly on steroids with goal BG 140-180mg/dL
Weight loss also recommended as part of the asthma therapy.
DVT prophylaxis: Lovenox
GI prophylaxis: Continue Pepcid
Hopefully discharge by tomorrow.
Total time spent today was 35 minutes for this encounter. Time includes reviewing laboratory test/imaging results, reviewing pertinent medical records, obtaining and reviewing medical history, performing an appropriate exam, ordering medications,
tests and procedures. Time also includes documentation of this encounter, coordinating patient care and communicating with other healthcare professionals. Total time does not include separately billed tests performed on this date of service.
Subjective Data
-
Date of Service:
Date of Service: August 23, 2023
Chief Complaint: Pulmonary Follow Up (Acute asthma exacerbation)
Subjective:
Patient seen today. Using CPAP overnight and says she denies morning headaches although she was getting that at home and was taking Excedrin for suspected migraines. She now complains of left-sided neck/facial pain with left-sided jaw locking.
She denies any worsening shortness of breath and actually says that she is breathing well. Still has some nasal congestion but does not want any nasal spray. Denies headache, chest pain, fevers or chills.
Review of Systems
General: Other (Negative unless mentioned above)
Objective Data
Data Reviewed
Vital Signs / I&O / Oxygen:
Vital Signs
Temp Pulse Resp BP Pulse Ox
97.8 F 70 17 137/86 96
08/23/23 08:12 08/23/23 08:12 08/23/23 08:12 08/23/23 08:12 08/23/23 10:02
Intake and Output
08/22/23 08/23/23 08/24/23
06:59 06:59 06:59
Intake Total 1140 / 1140 1870 / 1870
Output Total 0 / 0
Balance 1140 / 1140 1870 / 1870
SaO2 96
Nasal Cannula flow liters per 2
minute
Physical Exam
General: Respiratory Distress (negative) and Comfortable
HEENT: Normocephalic, Anicteric and Other (Thick neck)
Cardiovascular: S1-S2, Murmur (n), Rub (n) and Peripheral Edema (negative)
Respiratory: Wheeze (negative), Crackles (Faintly heard bilaterally), Rhonchi (n), Non-Labored Respirations and Stridor (n)
GI: Soft, Non Distended (Obese), Non Tender and Other (Abdominal obesity)
Neurology: Awake, Alert and No Motor Deficits
Skin: Cyanosis (n), Jaundice (n) and Rash (n)
Labs/Micro/Reports
Lab Data
08/19/23 05:30
08/22/23 06:23
Microbiology
08/19/23 07:55 Nose MRSA Screen - Final
No Methicillin Resistant Staphylococcus aureus isolated.
--- NOTE | 2023-08-23 14:33 | W.PN.HOSP.TC ---
Today's Communication/Plan
-
change steroid to po
She feels better
Left parotid pain- CT ordered
Assessment / Plan
Assessment / Plan
CVS: S1-S2 normal
Chest: faint exp wheeze on right only
Abdomen: Soft, NT / Bowel sounds present
Extremities: No edema, normal pulses
left parotid tenderness
CXR: Elevation of right hemidiaphragm again seen. Markedly low lung volumes with mild right basilar opacity most likely representing subsegmental atelectasis. No pneumothorax or pleural effusion
#Acute hypoxemic respiratory insufficiency due to acute asthma exacerbation:
-Off O2 now
-Decadron 4mg IV Q12H, changed to PO prednisone.
-Zithromax, Nebs
-Cont Pulmicort, albuterol standing and PRN, Singulair
-Pulmonary following
# Left parotid area tenderness and pain-CT with contrast
#Morbid obesity due to excess calories:
-Affects all aspects of care. In this instance acute asthma exacerbation the patient's morbid obesity is causing restrictive pulmonary physiology.
-Encourage weight loss
#WENDI: Cont CPAP HS
#GERD: currently on Pepcid
#Insomnia-on melatonin
#Migraines
#FULL CODE
#DVT Prophylaxis- Lovenox
Anticipated Discharge: Within 24 hours
Subjective/Interval History
-
Date of Service: August 23, 2023
Objective Data
-
Vital Signs:
Vital Signs
Temp Pulse Resp BP Pulse Ox
97.8 F 87 16 137/86 92
08/23/23 08:12 08/23/23 11:08 08/23/23 11:08 08/23/23 08:12 08/23/23 11:08
I&O
08/22/23 08/23/23 08/24/23
06:59 06:59 06:59
Intake Total 1140 / 1140 1870 / 1870
Output Total 0 / 0
Balance 1139
[2023-08-23 15:25] VITALS: BP 136/81
[2023-08-23 15:35] LABS: % Basophils 0.5 % (0-2); % Eosinophils 0.3 % (0-6); % Immature Granulocytes 3.8 % (0-0.5); % Lymphocytes 13.5 % (20.5-51.1); % Monocytes 6.7 % (1.7-9.3); % Neutrophils 75.2 % (42.2-75.2); Absolute Basophils 0.1 10^3/uL (0-0.2); Absolute Immature Granulocytes 0.4 10^3/uL (0-0.05); Absolute Lymphocytes 1.3 10^3/uL (1.2-3.4); Absolute Monocytes 0.7 10^3/uL (0.1-0.6); Absolute Neutrophils 7.5 10^3/uL (1.4-6.5); Hematocrit 43.8 % (37.0-47.0); Hemoglobin 14.5 g/dL (12.0-16.0); Mean Corp Hgb Conc. 33.1 g/dL (33.0-37.0); Mean Corpuscular Hgb 29.8 pg (27.0-31.0); Mean Corpuscular Volume 89.9 fL (81.0-99.0); Mean Platelet Volume 8.9 fL (7.4-10.4); Nucleated Red Blood Cells % 0 %; Platelet Count 331 10^3/uL (130-400); Red Blood Cell Count 4.87 10^6/uL (4.20-5.40); Red Cell Dist. Width 13.3 % (11.5-14.5); White Blood Cell Count 9.9 10^3/uL (4.8-10.8)
[2023-08-23 15:42] LABS: Blood Urea Nitrogen 21 mg/dl (7-17); Carbon Dioxide 28 mmol/L (22-30); Chloride 99 mmol/L (98-107); Estimated Creatinine Clearance 107 ml/min; Glucose 105 mg/dl (70-99); Potassium 4.9 mmol/L (3.5-5.1); Sodium 135 mmol/L (135-145); eGFR > 60.00
[2023-08-23] MEDS: LOVENOX 40 MG SC (17:21)
[2023-08-23] MEDS: SINGULAIR 10 MG PO (17:21)
[2023-08-23] MEDS: TYLENOL 650 MG PO (17:25)
[2023-08-23] MEDS: PEPCID 10 MG PO (20:58)
[2023-08-23] MEDS: MELATONIN 5 MG PO (20:59)
[2023-08-23 22:19] VITALS: PULSE 42
[2023-08-23 23:40] VITALS: BP 97/67
[2023-08-24 03:53] VITALS: BP 138/78
[2023-08-24 07:00] VITALS: BP 118/76
[2023-08-24] MEDS: PULMICORT 0.5 MG INH (07:54)
[2023-08-24] MEDS: VENTOLIN NEBULES 2.5 MG INH ×2 (07:54→11:57)
[2023-08-24] MEDS: THERAGRAN 1 TABLET PO (08:24)
[2023-08-24] MEDS: ZITHROMAX 500 MG PO (08:24)
[2023-08-24] MEDS: DELTASONE 50 MG PO (08:24)
[2023-08-24] MEDS: MUCINEX 600 MG PO (08:24)
[2023-08-24] MEDS: TYLENOL 650 MG PO (10:41)
[2023-08-24] MEDS: ZADITOR 1 DROP BOTH EYES (10:42)
--- NOTE | 2023-08-24 13:20 | W.PN.PUL3 ---
Today's Communication / Plan
-
Wean steroids to OCS starting today- prednisone 50mg and reduce by 10mg every 4th day until off
Step up therapy to triple inhaler with Trelegy 200mcg upon discharge
Continue nebulizer therapy while she remains inpatient
Azithromycin x 5 days
Oxygen has been weaned off -check walking pulse oximetry prior to discharge
We will arrange for outpatient office follow-up
Patient being arranged for discharge. Pulmonary service will now sign off. Please reconsult if there are any additional questions/concerns, or if patient's respiratory status deteriorates.
Assessment
-
58-year-old female with longstanding history of asthma, controlled, sleep apnea on CPAP therapy, morbid obesity with recent 30 pound weight gain, presents with 48 hours of increased symptoms. Noted to be hypoxic, hypertensive, tachycardic with
diffuse wheezing. Received IV steroids, IV magnesium and hour-long nebulizer. We are asked to help from pulmonary standpoint for asthma exacerbation
Acute asthma exacerbation (eosinophils: 200 on admission)
Tachycardia � resolved
Hypertension
Hypoxia, acute � resolved
Conditions present prior to admission
History of asthma on Symbicort therapy
Chronic rhinitis
GERD, hiatal hernia
History of sinus surgery
Sleep apnea on CPAP therapy
Family history of emphysema (father)
Morbid obesity
30 pound weight gain
History of COVID 2021
Plan/recommendations
Improving clinically, better air movement. Resolved wheezing as of 08/22.
Oxygen has been weaned off.
Feels improved but not completely back to baseline, intermittent coughing.
-
Patient apparently is compliant with Symbicort therapy. Trigger may be weather changes vs allergies
Plan:
Decrease steroids today, transition to prednisone 50 mg today --> would wean by 10mg every 4th day until off
Continue Pulmicort nebulizer while in the hospital
Continue singular
Considering patient is now experiencing and exacerbation, would step up therapy to triple inhaler with Trelegy 200mcg upon discharge
Azithromycin started per primary team due to productive cough. Will treat for only 5 days.
-
Patient has not followed up with pulmonary since 11/2019
She states her asthma has been controlled since 2018
She feels her cough has been present since 2021 following COVID
Discussed importance of weight loss measures
Head of bed elevated, GERD controlled
Maintain SpO2 >90-94%
Check walking pulse oximetry prior to discharge
She will require follow-up in the pulmonary clinic especially given her issues with CPAP
She continues with her CPAP overnight, but has been experiencing 'terrible AM headaches.' We will need to discuss this and obtain a CPAP download
This will be facilitated at time of discharge
Follow blood sugars, particularly on steroids with goal BG 140-180mg/dL
Weight loss also recommended as part of the asthma therapy.
DVT prophylaxis: Lovenox
GI prophylaxis: Continue Pepcid
Patient being arranged for discharge home. Pulmonary service will now sign off. Thank you for allowing us to be involved in the care of this patient. Please reconsult if there are any additional questions/concerns, or if patient's respiratory
status deteriorates.
Total time spent today was 25 minutes for this encounter. Time includes reviewing laboratory test/imaging results, reviewing pertinent medical records, obtaining and reviewing medical history, performing an appropriate exam, ordering medications,
tests and procedures. Time also includes documentation of this encounter, coordinating patient care and communicating with other healthcare professionals. Total time does not include separately billed tests performed on this date of service.
Subjective Data
-
Date of Service:
Date of Service: August 24, 2023
Chief Complaint: Pulmonary Follow Up (Acute asthma exacerbation)
Subjective:
Patient seen this morning. Feels well and is eager to go home. No acute events reported from overnight. On room air this morning saturating 94%. Wore CPAP overnight at 5 cmH2O. Currently denies chest pain, headache, abdominal pain, fevers or
chills.
Review of Systems
General: Other (Negative unless mentioned above)
Objective Data
Data Reviewed
Vital Signs / I&O / Oxygen:
Vital Signs
Temp Pulse Resp BP Pulse Ox
98.2 F 107 20 130/86 94
08/24/23 15:00 08/24/23 15:00 08/24/23 15:00 08/24/23 15:00 08/24/23 15:00
Intake and Output
08/23/23 08/24/23 08/25/23
06:59 06:59 06:59
Intake Total 1870 / 1870 600 / 600
Output Total 0 / 0
Balance 1870 / 1870 600 / 600
SaO2 94
Nasal Cannula flow liters per 2
minute
Physical Exam
General: Respiratory Distress (negative) and Comfortable
HEENT: Normocephalic, Anicteric and Other (Thick neck)
Cardiovascular: S1-S2, Murmur (n), Rub (n) and Peripheral Edema (negative)
Respiratory: Wheeze (negative), Crackles (Faintly heard bilaterally), Rhonchi (n), Non-Labored Respirations and Stridor (n)
GI: Soft, Non Distended (Obese), Non Tender and Other (Abdominal obesity)
Neurology: Awake, Alert and No Motor Deficits
Skin: Cyanosis (n), Jaundice (n) and Rash (n)
Labs/Micro/Reports
Lab Data
08/23/23 15:19
08/23/23 15:19
--- NOTE | 2023-08-24 13:58 | W.PN.HOSP.TC ---
Today's Communication/Plan
-
Patient has an appointment coming up with pulmonary this week
Discharge
Assessment / Plan
Assessment / Plan
CVS: S1-S2 normal
Chest: CTA
Abdomen: Soft, NT / Bowel sounds present
Extremities: No edema, normal pulses
No tenderness left side or any edema
CXR: Elevation of right hemidiaphragm again seen. Markedly low lung volumes with mild right basilar opacity most likely representing subsegmental atelectasis. No pneumothorax or pleural effusion
#Acute hypoxemic respiratory insufficiency due to acute asthma exacerbation:
-Off O2 now
-Decadron 4mg IV Q12H, changed to PO prednisone.
-Zithromax-2 more days, nebs
-Cont Pulmicort, albuterol standing and PRN, Singulair
-Pulmonary following
# Left parotid area tenderness and pain-CT with contrast with cervical spine DJD. Advised to follow-up with ENT if this comes back
#Morbid obesity due to excess calories:
-Affects all aspects of care. In this instance acute asthma exacerbation the patient's morbid obesity is causing restrictive pulmonary physiology.
-Encourage weight loss
#WENDI: Cont CPAP HS
#GERD: currently on Pepcid
#Insomnia-on melatonin
#[place] palsy left chronic-Advised to use eyedrops and also eyepatch with tape at night
#Migraines
#FULL CODE
#DVT Prophylaxis- Lovenox
Anticipated Discharge: Today
Subjective/Interval History
-
Date of Service: August 24, 2023
Objective Data
-
Vital Signs:
Vital Signs
Temp Pulse Resp BP Pulse Ox
97.8 F 86 18 118/76 93
08/24/23 07:00 08/24/23 07:56 08/24/23 07:56 08/24/23 07:00 08/24/23 07:56
I&O
08/23/23 08/24/23 08/25/23
06:59 06:59 06:59
Intake Total 1869 600 / 600
Output Total 0 / 0
Balance 1869 600 / 600
--- NOTE | 2023-08-24 14:02 | W.DS.TRANS ---
Addendum entered and electronically signed by Renny Smith MD 08/25/23 08:38:
Dictation- [id number]
Original Note:
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
-
Discharge Instructions:
Discharge Diagnosis/Procedures Asthma exacerbation with bronchitis, sleep apnea
, GERD, insomnia, migraines, Moderate C5-6 and
C6/C7 degenerative disc disease.
Diet As tolerated
Activity As tolerated
Driving Restrictions As prior to admission
Instructions:
Stand-Alone Forms:
Changes to Home Medications: Yes
Discharge Medications:
DC Medications w/original date entered in [facility]
albuterol sulfate 90 mcg/actuation aerosol inhaler (Ventolin HFA) 2 puff inhalation Q4HPRN PRN sob 11/15/15
budesonide-formoterol HFA 160 mcg-4.5 mcg/actuation aerosol inhaler (Symbicort) 2 puff inhalation R BID Lung/Breathing Issues 11/15/15
fluticasone propionate 50 mcg/actuation nasal spray,suspension 2 spray intranasal BID Allergies 11/15/15
montelukast 10 mg tablet 10 mg PO QPM Lung/Breathing Issues 11/15/15
albuterol sulfate 2.5 mg/3 mL (0.083 %) solution for nebulization 2.5 mg inhalation R QID Lung/Breathing Issues 08/18/23
famotidine 10 mg tablet (Pepcid AC) 10 mg PO HS GERD 08/18/23
melatonin 5 mg tablet 5 mg PO HS PRN sleep 08/18/23
multivitamin 1 tab PO DAILY Supplement 08/18/23
azithromycin 250 mg tablet 500 mg (2 x 250 mg) PO DAILY Lung/breathing issues #4 tabs 08/24/23
guaifenesin 600 mg tablet, extended release 12 hr 600 mg PO Q12 Lung/breathing issues #0 tabs 08/24/23
prednisone 10 mg tablet See Rx Instructions .Route .COMPLEX Lung/breathing issues #40 tabs 08/24/23
Home Medication Changes
new
azithromycin 250 mg tablet 500 mg (2 x 250 mg) PO DAILY Lung/breathing issues #4 tabs 08/24/23
guaifenesin 600 mg tablet, extended release 12 hr 600 mg PO Q12 Lung/breathing issues #0 tabs 08/24/23
prednisone 10 mg tablet See Rx Instructions .Route .COMPLEX Lung/breathing issues #40 tabs 08/24/23
Pending Results: No
--- NOTE | 2023-08-24 14:09 | CM ---
Case management following for d/c planning
Pt for d/c
Has transportation to home
Plan - home no needs
[2023-08-24 15:00] VITALS: BP 130/86
[2023-08-24] MEDS: VENTOLIN NEBULES INH (15:47)
== END 2023-08-24 16:42 | disposition home or self-care (01) | DRG 202 ==
LOC: 3 WEST ACU 15:55
PROVIDERS: Physician Assistant Medical; ADMITTING PHYSICIAN Internal Medicine; ATTENDING PHYSICIAN Hospitalist; CONSULT PHYSICIAN Internal Medicine Critical Care Medicine; EMERGENCY PHYSICIAN Emergency Medicine; FAMILY PHYSICIAN Family Medicine
DX: J45.901 Unspecified asthma with (acute) exacerbation (principal); Z68.42 Body mass index [BMI] 45.0-49.9, adult; R06.89 Other abnormalities of breathing; R09.02 Hypoxemia; E66.01 Morbid (severe) obesity due to excess calories; G47.33 Obstructive sleep apnea (adult) (pediatric); K21.9 Gastro-esophageal reflux disease without esophagitis; I10 Essential (primary) hypertension; G47.00 Insomnia, unspecified; M50.323 Other cervical disc degeneration at C6-C7 level
CPT/HCPCS: 70491; 71045; 80048; 83735; 85025; 85027; 87070; 93005; 94640; 94644; 94660; 94761; 96365; 96375; 99285; Q9967